=== PATIENT | female | born 1970 | race Asian ===

== ENCOUNTER 2016-10-25 10:37 | Emergency (ER) | payer OTHER ==
[2016-10-25] MEDS ORDERED: LIDOCAINE PATCH 5% TOP STA (12:34)
[2016-10-25] MEDS ORDERED: IBUPROFEN 400 MG TABLET PO STA (12:34)
[2016-10-25] MEDS ORDERED: CYCLOBENZAPRINE 10 MG TABLET PO STA (12:34)
[2016-10-25] MEDS ORDERED: CYCLOBENZAPRINE 10 MG TABLET PO ONE (12:37)
[2016-10-25] MEDS ORDERED: IBUPROFEN 400 MG TABLET PO ONE (12:38)
[2016-10-25] MEDS ORDERED: LIDOCAINE PATCH 5% TOP ONE (12:38)
== END 2016-10-25 14:01 | disposition home or self-care (01) ==
DX: S76.302A Unspecified injury of muscle, fascia and tendon of the posterior muscle group at thigh level, left thigh, initial encounter (principal); X50.1XXA Overexertion from prolonged static or awkward postures, initial encounter; Y93.89 Activity, other specified
CPT/HCPCS: 73552; 99283; A9270

== ENCOUNTER 2017-03-15 19:49 | Emergency (ER) | payer OTHER ==
[2017-03-15 21:01] VITALS: BP 111/73
[2017-03-15] MEDS ORDERED: DEXAMETHASONE 10 MG/ML VIAL PO STA (21:13)
--- NOTE | 2017-03-15 21:15 | ED Physician Documentation ---
History of Present Illness - Stated complaint Stated Complaint: THROAT PAIN - Chief complaint Chief Complaint: Heent - History obtained from History obtained from: Patient - History of Present Illness Timing: Today Pain level max: 1 Pain level now: 1 Improved by: nothing Worsened by: swallowing - Additonal information Additional information: Patient is a 46-year-old female who states that she was trying to remove a "tonsil stone" with a removal kit that she purchased off of [employer]. States that she feels like she scratched her throat and now has a sore feeling on the right side of her throat. Is not vomiting. Is not having trouble swallowing. Is not having fevers. Review of Systems Constitutional: denies: Fever, Chills Nose: denies: Rhinorrhea / runny nose, Congestion Respiratory: denies: Cough Skin: denies: Rash PD PAST MEDICAL HISTORY - Past Medical History Cardiovascular: None Respiratory: None Neuro: None Endocrine/Autoimmune: None GI: None CLINICAL RESEARCH NURSE: None : None HEENT: None Psych: None Musculoskeletal: None Derm: Eczema - Past Surgical History Past Surgical History: Yes /CLINICAL RESEARCH NURSE: section, Tubal ligation - Present Medications Home Medications: Ambulatory Orders Medication Instructions Recorded Confirmed Levothyroxine [Synthroid] 50 mcg PO DAILY 06/29/15 03/15/17 - Allergies Allergies/Adverse Reactions: Allergies Allergy/AdvReac Type Severity Reaction Status Date / Time bacitracin AdvReac Rash Verified 10/06/15 08:52 latex AdvReac Rash Verified 10/06/15 08:52 makeup AdvReac Rash Uncoded 10/06/15 08:52 - Social History Does the pt smoke?: No Smoking Status: Never smoker Does the pt drink ETOH?: No Does the pt have substance abuse?: No - Immunizations Immunizations are current?: Yes Immunizations: TDAP >10years/unknown - POLST Patient has POLST: No PD ED PE NORMAL - Vitals Vital signs reviewed: Yes - General General: Alert and oriented X 3, No acute distress - HEENT HEENT: PERRL, Ears normal, Moist mucous membranes, Pharynx benign - Neck Neck: Supple, no meningeal sign, No adenopathy - Cardiac Cardiac: RRR - Respiratory Respiratory: No respiratory distress, Clear bilaterally - Derm Derm: Warm and dry - Neuro Neuro: Alert and oriented X 3 - Psych Psych: Normal mood, Normal affect Results - Vitals Vitals: Vital Signs - 24 hr 03/15/17 03/15/17 19:52 20:59 Temperature 36.2 C L 37.6 C H Heart Rate 79 74 Respiratory 15 18 Rate Blood Pressure 121/74 111/73 O2 Saturation 100 100 Oxygen O2 Source Room air PD MEDICAL DECISION MAKING - ED course Complexity details: considered differential, d/w patient ED course: Patient appears to have a pharyngeal abrasion after trying to remove tonsil stones with the kit that she purchased online. Given a small dose of steroids here and expect this to improve over the next 2 days. No evidence of strep. Uvula midline. No bleeding. Patient counseled regarding signs and symptoms for which I believe and urgent re-evaluation would be necessary. Patient with good understanding of and agreement to plan and is comfortable going home at this time This document was made in part using voice recognition software. While efforts are made to proofread this document, sound alike and grammatical errors may occur. Departure - Departure Disposition: 01 Home, Self Care Clinical Impression: Abrasion of throat Qualifiers: Encounter type: initial encounter Qualified Code(s): S10.11XA - Abrasion of throat, initial encounter Condition: Good Instructions: ED Abrasion Pharyngeal Follow-Up: your,doctor in 1 week if not better [Other] Comments: Return if you worsen. This should improve over the next few days. Discharge Date/Time: 03/15/17 21:22
[2017-03-15] MEDS ORDERED: DEXAMETHASONE 10 MG/ML VIAL ONE (21:16)
[2017-03-15] MEDS ORDERED: CHERRY SYRUP 10 ML UDC PO ONE (21:16)
== END 2017-03-15 21:22 | disposition home or self-care (01) ==
LOC: ED 19:49
DX: S10.11XA Abrasion of throat, initial encounter (principal); X58.XXXA Exposure to other specified factors, initial encounter
CPT/HCPCS: 99283; A9270

== ENCOUNTER 2017-04-02 17:10 | Inpatient (IN) | payer OTHER ==
[~2017-04-02 17:10] MED LIST: MORPHINE 2 MG/ML SYRINGE IVP PRN; ONDANSETRON ODT 4 MG TABLET TL PRN; SODIUM CHLORIDE FLUSH 0.9% 10 ML SYRINGE IVP PRN
[2017-04-02 17:42] LABS: BILIRUBIN,URINE NEGATIVE (NEGATIVE); PH,URINE 6.5 PH (5.0-7.5)
[2017-04-02 17:45] LABS: UA CHARGE (STRIP ONLY) YES; UR CULTURE IF IND NOT INDICATED
[2017-04-02] MEDS ORDERED: HYDROmorphone 1 MG/ML SYRINGE IVP STA (18:18)
[2017-04-02] MEDS ORDERED: ONDANSETRON 4 MG/2 ML VIAL IVP STA (18:18)
[2017-04-02] MEDS ORDERED: SODIUM CHLORIDE 0.9% 1,000 ML IV ONE ×2 (18:18→21:18)
[2017-04-02] MEDS ORDERED: ONDANSETRON 4 MG/2 ML VIAL ONE (18:30)
[2017-04-02] MEDS ORDERED: HYDROmorphone 1 MG/ML SYRINGE ONE (18:30)
[2017-04-02 18:50] LABS: BILIRUBIN,TOTAL 0.6 mg/dL (0.2-1.0); CALCIUM 9.8 mg/dL (8.5-10.3); CREATININE 0.6 mg/dL (0.4-1.0); POTASSIUM 3.1 mmol/L (3.5-5.0); TOTAL PROTEIN 8.8 g/dL (6.7-8.2)
[2017-04-02 18:54] LABS: BASOPHILS # (AUTO) 0.1 10^3/uL (0.0-0.1); BASOPHILS % (AUTO) 2.3 %; EOSINOPHILS # (AUTO) 0.6 10^3/uL (0.0-0.7); EOSINOPHILS % (AUTO) 11.6 %; HCT - HEMATOCRIT 39.7 % (37.0-47.0); HGB - HEMOGLOBIN 13.2 g/dL (12.0-16.0); LYMPHOCYTES # (AUTO) 1.8 10^3/uL (1.5-3.5); LYMPHOCYTES % (AUTO) 36.4 %; MEAN CORPUSCULAR HEMOGLOBIN 30.1 pg (27.0-31.0); MEAN CORPUSCULAR HGB CONC 33.2 g/dL (32.0-36.0); MEAN CORPUSCULAR VOLUME 90.6 fL (81.0-99.0); MEAN PLATELET VOLUME 7.6 fL (7.9-10.8); MONOCYTES # (AUTO) 0.3 10^3/uL (0.0-1.0); MONOCYTES % (AUTO) 7.2 %; NEUTROPHILS % (AUTO) 42.5 %; RED BLOOD COUNT 4.38 10^6/uL (4.20-5.40); RED CELL DISTRIBUTION WIDTH 13.1 % (12.0-15.0); UNCORRECTED WHITE BLOOD COUNT 4.8 x10^3/uL; WHITE BLOOD COUNT 4.8 x10^3/uL (4.8-10.8)
[2017-04-02] MEDS ORDERED: IOPAMIDOL-300 100 ML VIAL IVP ONE (19:30)
--- NOTE | 2017-04-02 21:05 | ED Physician Documentation ---
PD HPI ABD PAIN - Stated complaint Stated Complaint: ABD PX - Chief complaint Chief Complaint: Abd Pain - History obtained from History obtained from: Patient - History of Present Illness Timing - onset: Today (this morning) Timing - duration: Days (1) Timing - details: Still present Quality: Pain Location: LLQ Associated symptoms: Nausea. No: Fever, Vomiting, Dysuria Similar symptoms before: Has not had sx before - Additional information Additional information: The patient is a 46-year-old female who presents with left lower quadrant abdominal pain that started this morning and has persisted throughout the day. She denies fever or dysuria. She reports mild nausea, without vomiting. Her last menstrual period was one week ago. She denies history of similar symptoms in the past. Past surgical history is significant for . Review of Systems Constitutional: denies: Fever Nose: denies: Congestion Throat: denies: Sore throat Cardiac: denies: Chest pain / pressure Respiratory: denies: Dyspnea, Cough GI: reports: Abdominal Pain, Nausea. denies: Vomiting, Diarrhea : reports: LMP (one week ago.). denies: Dysuria Skin: denies: Rash Musculoskeletal: denies: Back pain Neurologic: denies: Headache PD PAST MEDICAL HISTORY - Past Medical History Cardiovascular: None Respiratory: None Neuro: None Endocrine/Autoimmune: None GI: None QUICK SKETCH ARTIST: None : None HEENT: None Psych: None Musculoskeletal: None Derm: Eczema - Past Surgical History Past Surgical History: Yes /QUICK SKETCH ARTIST: section, Tubal ligation - Present Medications Home Medications: Ambulatory Orders Medication Instructions Recorded Confirmed Levothyroxine Sodium [Synthroid] 50 mcg PO QDAC 04/03/17 - Allergies Allergies/Adverse Reactions: Allergies Allergy/AdvReac Type Severity Reaction Status Date / Time bacitracin AdvReac Rash Verified 10/06/15 08:52 latex AdvReac Rash Verified 10/06/15 08:52 makeup AdvReac Rash Uncoded 10/06/15 08:52 - Social History Does the pt smoke?: No Smoking Status: Never smoker Does the pt drink ETOH?: No Does the pt have substance abuse?: No - Immunizations Immunizations are current?: Yes Immunizations: TDAP >10years/unknown - POLST Patient has POLST: No PD ED PE NORMAL - Vitals Vital signs reviewed: Yes (borderline hypertension) - General General: Alert and oriented X 3, Well developed/nourished - HEENT HEENT: Atraumatic, Pharynx benign - Neck Neck: No adenopathy, No JVD - Cardiac Cardiac: RRR, No murmur - Respiratory Respiratory: No respiratory distress, Clear bilaterally - Abdomen Abdomen: Soft, No organomegaly, Other (Tenderness to palpation in the left lower quadrant, without rebound or guarding.) - Back Back: No CVA TTP - Derm Derm: No rash - Extremities Extremities: No edema, No calf tenderness / cord - Neuro Neuro: Alert and oriented X 3, No motor deficit, Normal speech Results - Vitals Vitals: Vital Signs - 24 hr 04/02/17 04/02/17 04/02/17 17:12 19:30 21:18 Temperature 36.8 C 36.7 C 36.1 C L Heart Rate 80 72 93 Respiratory 18 14 15 Rate Blood Pressure 138/96 H 106/50 L 104/62 O2 Saturation 100 100 100 Oxygen O2 Source Room air - Labs Labs: Laboratory Tests 04/02/17 04/02/17 04/02/17 17:29 18:29 18:29 WBC 4.8 RBC 4.38 Hgb 13.2 Hct 39.7 MCV 90.6 MCH 30.1 MCHC 33.2 RDW 13.1 Plt Count 236 MPV 7.6 L Neut # 2.0 Lymph # 1.8 Gove # 0.3 Eos # 0.6 Baso # 0.1 Absolute Nucleated RBC 0.00 Nucleated RBCs 0.0 Sodium 137 Potassium 3.1 L Chloride 102 Carbon Dioxide 26 Anion Gap 9.0 BUN 8 Creatinine 0.6 Estimated GFR (MDRD) 108 Glucose 93 Calcium 9.8 Total Bilirubin 0.6 AST 22 ALT 23 Alkaline Phosphatase 47 Total Protein 8.8 H Albumin 4.5 Globulin 4.3 H Albumin/Globulin Ratio 1.0 Lipase 21 L Urine Color STRAW Urine Clarity CLEAR Urine pH 6.5 Ur Specific [place] <=1.005 Urine Protein NEGATIVE Urine Glucose (UA) NEGATIVE Urine Ketones NEGATIVE Urine Occult Blood TRACE-INTA Urine Nitrite NEGATIVE Urine Bilirubin NEGATIVE Urine Urobilinogen 0.2 (NORMAL) Ur Leukocyte Esterase NEGATIVE Ur Microscopic Review NOT INDICATED Urine Culture Comments NOT INDICATED - Rads (name of study) CT abd/pelvis w/IV contrast Radiology: Prelim report reviewed, EMP read contemporaneously, See rad report ( Mid small bowel obstruction, with at least 3 points of narrowing noted in the mid small bowel. Small amount of free fluid in the pelvis.) PD MEDICAL DECISION MAKING - ED course Complexity details: reviewed results, re-evaluated patient, considered differential, d/w patient, d/w family, d/w configuration management consultant ED course: The patient's presentation is significant for small bowel obstruction as seen on CT scan of the abdomen and pelvis. Her laboratory results are significant for mild hypokalemia with potassium of 3.1. Her white count is normal at 4.8. Treatment in the emergency department included administration of normal saline 1 L IV, hydromorphone 1 mg IV, and Zofran 4 mg IV. In addition potassium 10 mEq was administered IV. I discussed her condition with Dr. Diaz who evaluated her in the emergency department and admitted her for further evaluation and treatment. Departure - Departure Disposition: [facility] DC/Xfer Clinical Impression: Small bowel obstruction, Hypokalemia Condition: Stable Discharge Date/Time: 04/02/17 23:57
[2017-04-02] MEDS ORDERED: POTASSIUM CHLOR 10 MEQ/100 ML 100 ML IV ONE ×2 (21:52→21:58)
--- NOTE | 2017-04-02 22:06 | HISTORY & PHYSICAL EXAMINATION ---
Chief Complaint - Chief Complaint Chief Complaint: Abdominal pain Abdominal Pain HPI - Instructions [place]/Slash: -Left hand click circles element as positive or present. -Right hand click slashes element as negative or not present. - Admitted From Admitted from: ED - History Obtained From Records Reviewed: Old records reviewed History obtained from: Patient Exam limitations: No limitations - History of Present Illness Severity at the worst: reports: Moderate Pain Quality: reports: Sharp Timing: reports: Abrupt onset Duration: reports: Days: (1) Improved with: reports: Other (IV medications) Worsened by: reports: Palpation Associated symptoms: reports: Nausea HPI Comment/Other: 46 yo female with hypothyroid c/o of 1 day hx of suprapubic pain, /10, non- radiating, sharp constant which didn't improve so she came to the ED. She denies any vomiting or fevers and had episode of nausea after she was given pain medications in ED. Last BM this am. First time episode. Past surgical hx of 3 C-sections. LMP 03/27/17 PMH/PSH - Past Medical History Cardiovascular: positive: None Respiratory: positive: None Neuro: positive: None Endocrine/Autoimmune: positive: HyPOthyroidism GI: positive: None FLOOR CARE TECHNICIAN: positive: None : positive: None HEENT: positive: None Psych: positive: None Musculoskeletal: positive: None Derm: positive: Eczema MRSA Hx?: No - Past Surgical History /FLOOR CARE TECHNICIAN: positive: section (x3), Tubal ligation Social & Family Hx - Social History Does the pt smoke?: No Smoking Status: Never smoker Does the pt drink ETOH?: No Does the pt have substance abuse?: No - POLST Patient has POLST: No Meds/Allgy - Home Medications Home Medications: Ambulatory Orders Medication Instructions Recorded Confirmed Levothyroxine [Synthroid] 50 mcg PO DAILY 06/29/15 03/15/17 - Allergies Allergies/Adverse Reactions: Allergies Allergy/AdvReac Type Severity Reaction Status Date / Time bacitracin AdvReac Rash Verified 10/06/15 08:52 latex AdvReac Rash Verified 10/06/15 08:52 makeup AdvReac Rash Uncoded 10/06/15 08:52 Review of Systems - Constitutional Constitutional: reports: Fatigue. denies: Chills - Eyes Eyes: denies: Pain, Blurred vision - Ears, Nose & Throat Ears, Nose & Throat: denies: Nasal pain - Cardiovascular Cariovascular: denies: Irregular heart rate, Palpitations, Chest pain - Respiratory Respiratory: denies: Cough, Wheezing - Gastrointestinal Gastrointestinal: reports: Abdominal pain, Nausea. denies: Abdominal distention , Constipation, Diarrhea, Rectal bleeding, Black stools, Bloody stools, Vomiting , Bile emesis - Genitourinary Genitourinary: denies: Dysuria, Urgency - Musculoskeletal Musculoskeletal: denies: Muscle pain - Integumentary Integumentary: denies: Rash - Neurological Neurological: denies: General weakness - Psychiatric Psychiatric: denies: Depression - Endocrine Endocrine: denies: Polyuria - Hematologic/Lymphatic Hematologic/Lymphatic: denies: Anemia Exam - Vital Signs Reviewed Vital Signs: Yes Vital Signs: Vital Signs x48h Temp Pulse Resp BP Pulse Ox 04/02/17 21:18 36.1 C L 93 15 104/62 100 04/02/17 19:30 36.7 C 72 14 106/50 L 100 04/02/17 17:12 36.8 C 80 18 138/96 H 100 - Physical Exam General Appearance: positive: No acute distress Eyes Bilateral: positive: Normal inspection ENT: positive: No signs of dehydration Neck: positive: No JVD, Trachea midline Respiratory: positive: Breath sounds nml Cardiovascular: positive: Regular rate & rhythm Peripheral Pulses: positive: 2+ Abdomen: positive: Nml bowel sounds (+bs, soft,ND, mild TTP suprapubic area, No rebound or guarding) Rectal: positive: Non-tender (Vaginal exam non tender no discharge). negative: Tenderness, Mass Neurologic/Psychiatric: positive: Oriented x3, CN's nml (2-12) Results - Lab Results Fish Bones: 04/02/17 18:29 04/02/17 18:29 Other Lab Results: Lab Results x24hrs 04/02/17 04/02/17 04/02/17 Range/Units 18:29 18:29 17:29 WBC 4.8 (4.8-10.8) x10^3/uL RBC 4.38 (4.20-5.40) 10^6/uL Hgb 13.2 (12.0-16.0) g/dL Hct 39.7 (37.0-47.0) % MCV 90.6 (81.0-99.0) fL MCH 30.1 (27.0-31.0) pg MCHC 33.2 (32.0-36.0) g/dL RDW 13.1 (12.0-15.0) % Plt Count 236 (130-450) 10^3/uL MPV 7.6 L (7.9-10.8) fL Neut # 2.0 (1.5-6.6) 10^3/uL Lymph # 1.8 (1.5-3.5) 10^3/uL Rich # 0.3 (0.0-1.0) 10^3/uL Eos # 0.6 (0.0-0.7) 10^3/uL Baso # 0.1 (0.0-0.1) 10^3/uL Absolute Nucleated RBC 0.00 x10^3/uL Nucleated RBCs 0.0 /100WBC Sodium 137 (135-145) mmol/L Potassium 3.1 L (3.5-5.0) mmol/L Chloride 102 (101-111) mmol/L Carbon Dioxide 26 (21-32) mmol/L Anion Gap 9.0 (6-13) BUN 8 (6-20) mg/dL Creatinine 0.6 (0.4-1.0) mg/dL Estimated GFR (MDRD) 108 (>89) Glucose 93 (70-100) mg/dL Calcium 9.8 (8.5-10.3) mg/dL Total Bilirubin 0.6 (0.2-1.0) mg/dL AST 22 (10-42) IU/L ALT 23 (10-60) IU/L Alkaline Phosphatase 47 (42-121) IU/L Total Protein 8.8 H (6.7-8.2) g/dL Albumin 4.5 (3.2-5.5) g/dL Globulin 4.3 H (2.1-4.2) g/dL Albumin/Globulin Ratio 1.0 (1.0-2.2) Lipase 21 L (22-51) U/L Urine Color STRAW Urine Clarity CLEAR (CLEAR) Urine pH 6.5 (5.0-7.5) PH Ur Specific [place] <=1.005 (1.002-1.030) Urine Protein NEGATIVE (NEGATIVE) mg/dL Urine Glucose (UA) NEGATIVE (NEGATIVE) mg/dL Urine Ketones NEGATIVE (NEGATIVE) mg/dL Urine Occult Blood TRACE-INTA (NEGATIVE) Urine Nitrite NEGATIVE (NEGATIVE) Urine Bilirubin NEGATIVE (NEGATIVE) Urine Urobilinogen 0.2 (NORMAL) (NORMAL) E.U./dL Ur Leukocyte Esterase NEGATIVE (NEGATIVE) Ur Microscopic Review NOT INDICATED Urine Culture Comments NOT INDICATED - Diagnostic Imaging Results Diagnostic Imaging Results: positive: Read contemporaneously (Mid small bowel obstruction with at least 3 points of narrowing noted in the mid small bowel. Small amount of free fluid in the pelvis.) ARRA - Anticipated LOS Anticipated Stay Length: 2 or more midnights - DVT/VTE - Prophylaxis VTE/DVT Device ordered at admit?: Yes VTE/DVT Prophylaxis med ordered at admit?: Yes Impression/Plan - Problem List Problem List: 46 yo female with hypothyroidism now with Small bowel obstruction Likely adhesive. 1. NPO 2. NGT to LWS 3 IVF 4. IV synthroid 5. HSQ 6. GI prophylaxis 7 Am KUB 8. AM labs 9. Possible SBFT
[2017-04-02] MEDS ORDERED: SODIUM CHLORIDE FLUSH 0.9% 10 ML SYRINGE IVP PRN (22:25)
[2017-04-02] MEDS ORDERED: MORPHINE 2 MG/ML SYRINGE IVP PRN (22:25)
[2017-04-02] MEDS ORDERED: ONDANSETRON ODT 4 MG TABLET TL PRN (22:25)
[2017-04-02] MEDS ORDERED: BENZOCAINE/MENTHOL LOZENGE MM STA (22:37)
[2017-04-02] MEDS ORDERED: BENZOCAINE/MENTHOL LOZENGE MM SCH (22:37)
[2017-04-02] MEDS: LACTATED RINGERS 1,000 ML IV SCH (22:41)
[2017-04-02] MEDS ORDERED: LIDOCAINE 2% URO-JET 5 ML SYRINGE UR ONE (22:48)
--- NOTE | 2017-04-02 22:57 | CT Report ---
EXAM: CT ABDOMEN AND PELVIS EXAM DATE: 04/02/2017 07:09 PM. CLINICAL HISTORY: Left lower quadrant pain. COMPARISONS: None. TECHNIQUE: Routine helical CT imaging was performed through the abdomen and pelvis. IV contrast: 100 cc of Isovue-300. Enteric contrast: No. Reconstructions: Coronal and sagittal. In accordance with CT protocol optimization, one or more of the following dose reduction techniques w ere utilized for this exam: automated exposure control, adjustment of mA and/or KV based on patient s ize, or use of iterative reconstructive technique. FINDINGS: Lung Bases: Unremarkable. Liver: Normal. No masses. Gallbladder/Bile Ducts: Unremarkable. Spleen: Normal. Pancreas: Normal. Adrenal Glands: Normal. Kidneys: Normal. No masses or hydronephrosis. Peritoneal Cavity/Bowel: Proximal small bowel dilatation with at least 3 points of narrowing, best se en on image 35 series 3, image 23 series 6, and image 39 series 3. Decompressed ileum. No free air or adenopathy. No masses or acute inflammatory process. The appendix is well visualized and normal. Pelvic Organs: Small amount of free fluid. Reproductive organs and bladder are unremarkable. Vasculature: No aneurysms or other significant abnormality. Bones: No significant abnormality. Other: None. IMPRESSION: Mid small bowel obstruction, with at least 3 points of narrowing noted in the mid small b owel. Small amount of free fluid in the pelvis. [facility] Referring Provider Line: [phone] SITE ID: [id number]
--- NOTE | 2017-04-02 22:57 | CT Preliminary Report ---
Exam: CT Abdomen/Pelvis W/ IMPRESSION: Mid small bowel obstruction, with at least 3 points of narrowing noted in the mid small b owel. Small amount of free fluid in the pelvis. [facility] SITE ID: [id number]
[2017-04-02] MEDS ORDERED: HEPARIN 5,000 UNIT/ML VIAL SUBQ SCH (23:00)
[2017-04-03] MEDS ORDERED: SODIUM CHLORIDE FLUSH 0.9% 10 ML SYRINGE IVP SCH (06:00)
[2017-04-03] MEDS: SODIUM CHLORIDE FLUSH 0.9% 10 ML SYRINGE IVP SCH ×3 (06:33→20:44)
[2017-04-03] MEDS: LACTATED RINGERS 1,000 ML IV SCH ×2 (06:33→20:44)
[2017-04-03] MEDS: LEVOTHYROXINE 100 MCG VIAL IVP SCH (06:34)
[2017-04-03] MEDS ORDERED: LEVOTHYROXINE 100 MCG VIAL IVP SCH (07:00)
[2017-04-03] MEDS ORDERED: FAMOTIDINE 20 MG/50 ML 50 ML IV SCH (09:00)
[2017-04-03] MEDS: FAMOTIDINE 20 MG/50 ML 50 ML IV SCH (09:55)
[2017-04-03] MEDS: HEPARIN 5,000 UNIT/ML VIAL SUBQ SCH ×2 (10:06→20:41)
[2017-04-03 10:37] LABS: CALCIUM 8.5 mg/dL (8.5-10.3); CREATININE 0.6 mg/dL (0.4-1.0); POTASSIUM 3.4 mmol/L (3.5-5.0)
--- NOTE | 2017-04-03 11:00 | XRAY Preliminary Report ---
Exam: XR Abdomen 1 View IMPRESSION: 1. Moderate stool in right hemicolon. 2. No dilated bowel to suggest obstruction. 3. Probable terminal ileal inflammation on abdominal CT prior day. Recommend clinical correlation and consider follow-up gastroenterology consult to exclude Crohn's disease. [facility] SITE ID: [id number]
--- NOTE | 2017-04-03 11:02 | XRAY Report ---
EXAM: ABDOMEN RADIOGRAPHY EXAM DATE: 04/03/2017 10:21 AM. CLINICAL HISTORY: Abdominal pain. COMPARISON: Abdominal pelvic CT prior day. TECHNIQUE: 1 view. FINDINGS: Bowel Gas Pattern: Moderate stool in right hemicolon. No pneumatosis evident. No dilated bowel. Other: None. IMPRESSION: 1. Moderate stool in right hemicolon. 2. No dilated bowel to suggest obstruction. 3. Probable terminal ileal inflammation on abdominal CT prior day. Recommend clinical correlation and consider follow-up gastroenterology consult to exclude Crohn's disease. [facility] Referring Provider Line: [phone] SITE ID: [id number]
--- NOTE | 2017-04-03 11:09 | PROVIDER PROGRESS NOTE ---
Subjective - General Admit Date: 04/02/17 Procedure Date: 04/03/17 Post Op Days: 0 - Review of Systems General: positive: No symptoms HEENT: positive: No symptoms Pulmonary: positive: No symptoms Cardiovascular: positive: No symptoms Gastrointestinal: positive: No symptoms Genitourinary: positive: No symptoms Musculoskeletal: positive: No symptoms Skin: positive: No symptoms Psychiatric: positive: No symptoms - Other Other Information/Narrative: Patient seen at bedside. No issues. States she feels better. Ambulating. urinating well. Passing gas. Patient has been refusing an NG tube as well as not compliant with wearing of the SCD's. Objective - Patient Data Reviewed Vital Signs: Yes Vital Signs: Vital Signs x48h Temp Pulse Resp BP Pulse Ox 04/03/17 09:02 64 97/54 L 04/03/17 08:36 37.1 C 67 16 93/54 L 100 04/03/17 06:21 36.9 C 114 H 16 103/58 L 96 Intake & Output: Intake and Output Totals x24h 04/01/17 04/02/17 04/03/17 23:59 23:59 23:59 Intake Total 950 Output Total 1400 Balance -450 - Lab Results Lab Results: 04/02/17 18:29 04/03/17 10:05 Other Lab Results: Lab Results x24hrs 04/03/17 04/02/17 Range/Units 10:05 22:27 Sodium 139 (135-145) mmol/L Potassium 3.4 L (3.5-5.0) mmol/L Chloride 107 (101-111) mmol/L Carbon Dioxide 26 (21-32) mmol/L Anion Gap 6.0 (6-13) BUN 5 L (6-20) mg/dL Creatinine 0.6 (0.4-1.0) mg/dL Estimated GFR (MDRD) 108 (>89) Glucose 90 (70-100) mg/dL Lactic Acid 1.6 (0.5-2.2) mmol/L Calcium 8.5 (8.5-10.3) mg/dL - Current Medications Current Medications: Current Medications Generic Name Dose Route Start Last Admin Trade Name Freq PRN Reason Stop Dose Admin Heparin Sodium (Porcine) 5,000 unit 04/02/17 23:00 04/03/17 10:06 SUBQ 5,000 unit BID LARRY Administration Lactated Ringer's 1,000 mls @ 150 mls/hr 04/02/17 22:00 04/03/17 06:33 Lr IV 150 mls/hr .[id number] LARRY Administration Famotidine 50 mls @ 100 mls/hr 04/03/17 09:00 04/03/17 09:55 Pepcid 20 Mg/50 Ml IV 100 mls/hr DAILY LARRY Administration Levothyroxine Sodium 25 mcg 04/03/17 07:00 04/03/17 06:34 Synthroid Inj IVP Not Given QDAC LARRY Sodium Chloride 10 ml 04/03/17 06:00 04/03/17 06:33 Normal Saline Flush 0.9% IVP Not Given Q8HR LARRY - Physical Exam General Appearance: positive: No acute distress Eyes Bilateral: positive: Normal inspection ENT: positive: No signs of dehydration Neck: positive: No JVD Respiratory: positive: Breath sounds nml Cardiovascular: positive: Regular rate & rhythm Abdomen: positive: Non-tender, No organomegaly, Nml bowel sounds, No distention. negative: Guarding, Rebound Skin: positive: Warm, Dry Extremities: positive: Non-tender, Full ROM Neurologic/Psychiatric: positive: Oriented x3, CN's nml (2-12) Impression/Plan - Problem List Problem List: 46 yo female with small bowel obstruction complete vs partial improving. Will try clears. KUB looks like moderate stool in colon. Will give stool softeners. Continue serial exams.
[2017-04-03] MEDS ORDERED: BISACODYL 10 MG SUPP PR ONE (11:30)
[2017-04-03] MEDS: POLYETHYLENE GLYCOL 3350 17 GM PACKET PO SCH (12:07)
[2017-04-03] MEDS ORDERED: MAGNESIUM HYDROXIDE 2,400 MG/30 ML UDC PO PRN (16:24)
[2017-04-03 17:35] LABS: EOSINOPHILS # (AUTO) 0.2 10^3/uL (0.0-0.7); EOSINOPHILS % (AUTO) 5.3 %; HCT - HEMATOCRIT 35.4 % (37.0-47.0); HGB - HEMOGLOBIN 11.9 g/dL (12.0-16.0); LYMPHOCYTES # (AUTO) 1.6 10^3/uL (1.5-3.5); MEAN CORPUSCULAR HEMOGLOBIN 30.5 pg (27.0-31.0); MEAN CORPUSCULAR HGB CONC 33.5 g/dL (32.0-36.0); MEAN CORPUSCULAR VOLUME 91.3 fL (81.0-99.0); MEAN PLATELET VOLUME 7.6 fL (7.9-10.8); MONOCYTES # (AUTO) 0.4 10^3/uL (0.0-1.0); MONOCYTES % (AUTO) 8.7 %; NEUTROPHILS # (AUTO) 1.9 10^3/uL (1.5-6.6); RED BLOOD COUNT 3.88 10^6/uL (4.20-5.40); RED CELL DISTRIBUTION WIDTH 13.4 % (12.0-15.0); UNCORRECTED WHITE BLOOD COUNT 4.2 x10^3/uL; WHITE BLOOD COUNT 4.2 x10^3/uL (4.8-10.8)
[2017-04-03] MEDS ORDERED: POTASSIUM CHLORIDE 20 MEQ TABLET PO SCH (19:00)
[2017-04-03] MEDS: MAGNESIUM OXIDE 400 MG TABLET PO SCH (20:41)
[2017-04-03] MEDS ORDERED: LACTATED RINGERS 1,000 ML IV SCH (21:32)
[2017-04-04] MEDS: LEVOTHYROXINE 100 MCG VIAL IVP SCH (06:09)
[2017-04-04] MEDS: SODIUM CHLORIDE FLUSH 0.9% 10 ML SYRINGE IVP SCH (06:10)
[2017-04-04] MEDS: POLYETHYLENE GLYCOL 3350 17 GM PACKET PO SCH (08:41)
[2017-04-04] MEDS: MAGNESIUM OXIDE 400 MG TABLET PO SCH (08:41)
[2017-04-04] MEDS: HEPARIN 5,000 UNIT/ML VIAL SUBQ SCH (08:41)
[2017-04-04] MEDS: FAMOTIDINE 20 MG/50 ML 50 ML IV SCH (08:41)
--- NOTE | 2017-04-04 08:59 | PROVIDER PROGRESS NOTE ---
Assessment/Plan - Problem List (1) Small bowel obstruction Assessment/Plan: 46 yo female with partial small bowel obstruction resolved. Stable for D/C. Will discharge on stool softeners and instructed to stay hydrated. - Current Meds Current Meds: Current Medications Generic Name Dose Route Start Last Admin Trade Name Freq PRN Reason Stop Dose Admin Heparin Sodium (Porcine) 5,000 unit 04/02/17 23:00 04/04/17 08:41 SUBQ Not Given BID LARRY Famotidine 50 mls @ 100 mls/hr 04/03/17 09:00 04/04/17 08:41 Pepcid 20 Mg/50 Ml IV 100 mls/hr DAILY LARRY Administration Lactated Ringer's 1,000 mls @ 30 mls/hr 04/03/17 21:32 04/04/17 00:14 Lr IV Not Given .[id number] LARRY TKO Levothyroxine Sodium 25 mcg 04/03/17 07:00 04/04/17 06:09 Synthroid Inj IVP 25 mcg QDAC LARRY Administration Magnesium Hydroxide 2,400 mg 04/03/17 16:24 04/03/17 17:03 Milk Of Magnesia PO 2,400 mg DAILY PRN Administration CONSTIPATION Magnesium Oxide 400 mg 04/03/17 21:00 04/04/17 08:41 Mag Ox PO 04/04/17 20:59 400 mg BID LARRY Administration Polyethylene Glycol 17 gm 04/03/17 11:00 04/04/17 08:41 Miralax PO 17 gm DAILY LARRY Administration Sodium Chloride 10 ml 04/03/17 06:00 04/04/17 06:10 Normal Saline Flush 0.9% IVP 10 ml Q8HR LARRY Administration - Lab Result Lab results reviewed: Yes Fish Bone Diagrams: 04/03/17 17:00 04/03/17 10:05 - Additional Planning My Orders: My Active Orders 04/03/17 09:00 Famotidine 20 mg/50 ml [Pepcid 20 mg/50 ml] 50 ml IV DAILY 04/03/17 11:00 Polyethylene Glycol 3350 [Miralax] 17 gm PO DAILY 04/03/17 16:24 Magnesium Hydroxide [Milk of Magnesia] 2,400 mg PO DAILY PRN 04/03/17 21:00 Magnesium Oxide [Mag Ox] 400 mg PO BID 04/03/17 21:32 Lactated Ringers [Lr] 1,000 ml IV TKO 04/04/17 Breakfast Regular Diet [DIET] Subjective - Subjective Patient Reports: Feeling Better (Patient seen bedside, no complaints, ambulating having BM, tolerating regular diet.) Nursing Reports: No Complaints Objective Vital Signs: Vital Signs - 24 hr 04/03/17 04/03/17 04/03/17 09:02 15:13 16:10 Temperature 36.9 C 36.8 C Heart Rate [ 64 64 63 Brachial] Respiratory 16 20 Rate Blood Pressure 97/54 L 107/58 L 107/56 L [Right Brachial artery] O2 Saturation 100 100 04/04/17 05:26 Temperature 36.7 C Heart Rate [ 70 Brachial] Respiratory 16 Rate Blood Pressure 99/55 L [Right Brachial artery] O2 Saturation 100 Oxygen O2 Source Room air I&O (Last 24 Hrs): Intake and Output Totals x24h 04/02/17 04/03/17 04/04/17 23:59 23:59 23:59 Intake Total 2678 450 Output Total 1400 Balance 1278 450 General: Alert, Oriented x3 HEENT: PERRLA Neck: No JVD Cardiovascular: Regular rate Respiratory: Breath sounds nml Abdomen: Normal bowel sounds, Soft, No tenderness, No hepatospenomegaly - Results Results: Laboratory Results WBC 4.2 x10^3/uL (4.8-10.8) L 04/03/17 17:00 RBC 3.88 10^6/uL (4.20-5.40) L 04/03/17 17:00 Hgb 11.9 g/dL (12.0-16.0) L 04/03/17 17:00 Hct 35.4 % (37.0-47.0) L 04/03/17 17:00 MCV 91.3 fL (81.0-99.0) 04/03/17 17:00 MCH 30.5 pg (27.0-31.0) 04/03/17 17:00 MCHC 33.5 g/dL (32.0-36.0) 04/03/17 17:00 RDW 13.4 % (12.0-15.0) 04/03/17 17:00 Plt Count 193 10^3/uL (130-450) 04/03/17 17:00 MPV 7.6 fL (7.9-10.8) L 04/03/17 17:00 Neut # 1.9 10^3/uL (1.5-6.6) 04/03/17 17:00 Lymph # 1.6 10^3/uL (1.5-3.5) 04/03/17 17:00 [place] # 0.4 10^3/uL (0.0-1.0) 04/03/17 17:00 Eos # 0.2 10^3/uL (0.0-0.7) 04/03/17 17:00 Baso # 0.0 10^3/uL (0.0-0.1) 04/03/17 17:00 Absolute Nucleated RBC 0.00 x10^3/uL 04/03/17 17:00 Nucleated RBCs 0.0 /100WBC 04/03/17 17:00 Sodium 139 mmol/L (135-145) 04/03/17 10:05 Potassium 3.4 mmol/L (3.5-5.0) L 04/03/17 10:05 Chloride 107 mmol/L (101-111) 04/03/17 10:05 Carbon Dioxide 26 mmol/L (21-32) 04/03/17 10:05 Anion Gap 6.0 (6-13) 04/03/17 10:05 BUN 5 mg/dL (6-20) L 04/03/17 10:05 Creatinine 0.6 mg/dL (0.4-1.0) 04/03/17 10:05 Estimated GFR (MDRD) 108 (>89) 04/03/17 10:05 Glucose 90 mg/dL (70-100) 04/03/17 10:05 Lactic Acid 1.6 mmol/L (0.5-2.2) 04/02/17 22:27 Calcium 8.5 mg/dL (8.5-10.3) 04/03/17 10:05 Total Bilirubin 0.6 mg/dL (0.2-1.0) 04/02/17 18:29 AST 22 IU/L (10-42) 04/02/17 18:29 ALT 23 IU/L (10-60) 04/02/17 18:29 Alkaline Phosphatase 47 IU/L (42-121) 06/16/17 18:29 C-React Prot High Sens < 0.5 mg/L 04/03/17 17:00 Total Protein 8.8 g/dL (6.7-8.2) H 04/02/17 18:29 Albumin 4.5 g/dL (3.2-5.5) 04/02/17 18:29 Globulin 4.3 g/dL (2.1-4.2) H 04/02/17 18:29 Albumin/Globulin Ratio 1.0 (1.0-2.2) 04/02/17 18:29 Lipase 21 U/L (22-51) L 04/02/17 18:29 Serum HCG, Qual NEGATIVE 04/03/17 10:05 Urine Color STRAW 04/02/17 17:29 Urine Clarity CLEAR (CLEAR) 04/02/17 17:29 Urine pH 6.5 PH (5.0-7.5) 04/02/17 17:29 Ur Specific [place] <=1.005 (1.002-1.030) 04/02/17 17:29 Urine Protein NEGATIVE mg/dL (NEGATIVE) 04/02/17 17:29 Urine Glucose (UA) NEGATIVE mg/dL (NEGATIVE) 04/02/17 17:29 Urine Ketones NEGATIVE mg/dL (NEGATIVE) 04/02/17 17:29 Urine Occult Blood TRACE-INTA (NEGATIVE) 04/02/17 17:29 Urine Nitrite NEGATIVE (NEGATIVE) 04/02/17 17:29 Urine Bilirubin NEGATIVE (NEGATIVE) 04/02/17 17:29 Urine Urobilinogen 0.2 (NORMAL) E.U./dL (NORMAL) 04/02/17 17:29 Ur Leukocyte Esterase NEGATIVE (NEGATIVE) 04/02/17 17:29 Ur Microscopic Review NOT INDICATED 04/02/17 17:29 Urine Culture Comments NOT INDICATED 04/02/17 17:29
--- NOTE | 2017-04-04 09:02 | Discharge Plan ---
Discharge Plan Disposition: Home, Self Care Condition: Stable Prescriptions: Docusate Sodium 250Mg Capsule [Colace 250Mg Capsule] 250 mg PO DAILY PRN #100 capsule PRN Reason: Constipation Psyllium Husk [Metamucil] 0.52 gm PO BID PRN #90 capsule PRN Reason: Constipation Multivitamin W/Minerals [Theragran M] 1 each PO DAILY #90 tablet Diet: Regular Activity Restrictions: No Restrictions Shower Restrictions: No Driving Restrictions: No Weight Bearing: Full Weight Additional Instructions or Follow Up instructions: Stay hydrated. Take multivitamin once daily. Take stool softeners when constipated. Eat more fiber. Follow up with your Primary Care Doctor for a GI referral for colonoscopy and possible Crohn's workup. Call the office for an appointment [phone] No Smoking: If you smoke, Please STOP! Call for help. Follow-up with: Toro Diaz DO [Provider Admit Priv/Credential] - 2 Weeks
[2017-04-04 10:25] VITALS: BP 109/54
--- NOTE | 2017-04-05 06:04 | DISCHARGE SUMMARY ---
DATE OF ADMISSION: 04/02/2017 DATE OF DISCHARGE: 04/04/2017 ATTENDING PHYSICIAN: Toro Diaz DO CONDITION ON DISCHARGE: Stable and improved. FINAL DIAGNOSIS: Partial small-bowel obstruction. HISTORY OF PRESENT ILLNESS: This is a pleasant 46-year-old female with a history of hypothyroidism who complained of a 1-day history of suprapubic 8/10, nonradiating, sharp, constant pain, which did not improve so she came to the emergency room. She denied any vomiting or fevers at that time and had some nausea after she was given pain medications in the emergency room. Her last bowel movement was 04/02/2017, this was a first-time episode. She has a past surgical history of 3 C-sections. Her last menstrual period was 03/27/2017. A CT scan was performed on 04/02/2017, which confirmed the proximal small bowel dilation with at least 3 points of narrowing and a decompressed ileum without any free air or adenopathy. No masses or acute inflammatory process, and a normal appendix, which looked like to be consistent with a mid small-bowel obstruction. An abdominal x-ray was performed on 04/03/2017, which showed moderate stool in the right hemicolon. There was no dilated bowel to suggest an obstruction. Probable terminal ileal inflammation noted on the CT and they were recommending clinical correlation to exclude Crohn disease. LABORATORY DATA: Potassium was 3.1, lactic acid was 1.6, C-reactive protein was less than 0.5. WBCs were 4.2, hemoglobin and hematocrit were 11.9/35.4. UA was negative. Serum hCG was negative. HOSPITAL COURSE: She was admitted to the hospital where IV fluid resuscitation was begun. She was given pain control with morphine and DVT prophylaxis with heparin subcutaneous, as well as GI prophylaxis with famotidine. She had return of bowel function late on 04/03/2017 and she continued to ambulate, she tolerated diet and she was subsequently discharged. DISCHARGE MEDICATIONS: The patient was instructed to continue her home medications. She was discharged on Colace, Metamucil, multivitamin. DISCHARGE INSTRUCTIONS: She was instructed to continue on a regular diet with no activity or shower, driving restrictions, full weightbearing. She was instructed to stay hydrated, take the multivitamin once daily, take stool softeners when constipated, eat more fiber, and follow up with her primary care doctor for GI referral, colonoscopy and possible Crohn's workup. She was also instructed to call our office for an appointment and the phone number was given. A work note was also given. CODE STATUS: FULL CODE. JOB #: [id number] EXT JOB #:[id number] MTDD
== END 2017-04-04 11:20 | disposition home or self-care (01) | DRG 390 ==
LOC: ED 17:10 → MS 22:25 → ED 23:57
PROVIDERS: ADMIT Surgery; ATTEND Surgery
DX: K56.60 Unspecified intestinal obstruction (principal); E03.9 Hypothyroidism, unspecified; E87.6 Hypokalemia
CPT/HCPCS: 36415; 74000; 74177; 80048; 80053; 81001; 81003; 83605; 83690; 83735; 84100; 84703; 85025; 86141; 87086; 96361; 96374; 96375; 99284; 99285

== ENCOUNTER 2017-07-27 15:01 | Emergency (ER) | payer OTHER ==
[2017-07-27 15:11] VITALS: BP 120/73
--- NOTE | 2017-07-27 16:10 | ED Physician Documentation ---
History of Present Illness - Stated complaint Stated Complaint: COUGH - History obtained from History obtained from: Patient - History of Present Illness Timing: Other (Sick for about a week with nonproductive cough, headache at night especially when coughing, some runny nose. Her son is sick with a similar illness.) Review of Systems Constitutional: denies: Fever, Chills Ears: denies: Drainage/discharge Nose: reports: Rhinorrhea / runny nose Throat: denies: Sore throat Respiratory: reports: Cough. denies: Dyspnea PD PAST MEDICAL HISTORY - Past Medical History Past Medical History: Yes Cardiovascular: None Respiratory: None Neuro: None Endocrine/Autoimmune: HyPOthyroidism GI: None VOCATIONAL REHABILITATION CONSULTANT: None : None HEENT: None Psych: None Musculoskeletal: None Derm: Eczema - Past Surgical History Past Surgical History: Yes /VOCATIONAL REHABILITATION CONSULTANT: section, Tubal ligation - Present Medications Home Medications: Ambulatory Orders Medication Instructions Recorded Confirmed Levothyroxine Sodium [Synthroid] 50 mcg PO QDAC 04/03/17 07/27/17 Multivitamin W/Minerals [Theragran 1 each PO DAILY #90 tablet 04/04/17 07/27/17 M] Azithromycin [Zithromax] 250 mg PO DAILY #6 tablet 07/27/17 Calcium Carbonate/Vitamin D3 1 tab PO DAILY 07/27/17 07/27/17 [Calcium 600-Vit D3 500 Softgel] Guaifenesin/Pseudoephedrne HCl 1 each PO BID PRN #20 tab.er.12h 07/27/17 [Mucinex D ER 600-60 mg Tablet] guaiFENesin/CODEINE [Robitussin AC] 5 - 10 ml PO Q6H PRN #120 ml 07/27/17 - Allergies Allergies/Adverse Reactions: Allergies Allergy/AdvReac Type Severity Reaction Status Date / Time latex Allergy Itching Verified 07/27/17 15:44 bacitracin AdvReac Rash Verified 07/27/17 15:44 - Social History Does the pt smoke?: No Smoking Status: Never smoker Does the pt drink ETOH?: No Does the pt have substance abuse?: No - Immunizations Immunizations are current?: Yes Immunizations: TDAP >10years/unknown - POLST Patient has POLST: No PD ED PE NORMAL - Vitals Vital signs reviewed: Yes - General General: Alert and oriented X 3, No acute distress - HEENT HEENT: Other (Right otitis media, left TM normal, oropharynx normal.) - Neck Neck: Supple, no meningeal sign, No bony TTP - Cardiac Cardiac: RRR, No murmur - Respiratory Respiratory: No respiratory distress, Clear bilaterally - Abdomen Abdomen: Non tender - Neuro Neuro: Alert and oriented X 3, Normal speech - Psych Psych: Normal mood, Normal affect Results - Vitals Vitals: Vital Signs - 24 hr 07/27/17 15:08 Temperature 36.2 C L Heart Rate 118 H Respiratory 18 Rate Blood Pressure 120/73 O2 Saturation 99 Oxygen O2 Source Room air Departure - Departure Disposition: Home, Self Care Clinical Impression: Viral URI with cough Otitis media Qualifiers: Otitis media type: suppurative Chronicity: acute Laterality: right Recurrence: not specified as recurrent Spontaneous tympanic membrane rupture: without spontaneous rupture Qualified Code(s): H66.001 - Acute suppurative otitis media without spontaneous rupture of ear drum, right ear Instructions: ED Otitis Media Acute Adult Prescriptions: Azithromycin [Zithromax] 250 mg PO DAILY #6 tablet guaiFENesin/CODEINE [Robitussin AC] 5 - 10 ml PO Q6H PRN #120 ml PRN Reason: Cough Guaifenesin/Pseudoephedrne HCl [Mucinex D ER 600-60 mg Tablet] 1 each PO BID PRN #20 tab.er.12h PRN Reason: congestion Comments: Call your doctor to arrange a follow-up appointment, make the next available appointment. In the interim, return anytime if worse or if new symptoms develop. Forms: Activity restrictions Discharge Date/Time: 07/27/17 16:09
== END 2017-07-27 16:09 | disposition home or self-care (01) ==
LOC: ED 15:01
DX: H66.001 Acute suppurative otitis media without spontaneous rupture of ear drum, right ear (principal); J06.9 Acute upper respiratory infection, unspecified
CPT/HCPCS: 99281; 99283

== ENCOUNTER 2018-04-01 09:55 | Outpatient (CLI) | payer OTHER ==
--- NOTE | 2018-04-07 12:33 | Mammography Report ---
Procedure Date: 04/01/2018 Accession Number: [id number] / [id number] Procedure: ERIC - Screening Mammo Dig Bilat CPT Code: FULL RESULT: EXAM: Screening Mammo Dig Bilat DATE: 04/01/2018 10:11 AM CLINICAL HISTORY: Routine screening TECHNIQUE: Bilateral CC, exaggerated CC, and MLO views were obtained. COMPARISON: 03/31/2017, 03/11/2016, 01/16/2015, 01/03/2014, 08/01/2013, and 08/01/2012 FINDINGS: The breast tissue is heterogeneously dense no significant interval change. No suspicious masses, clustered microcalcifications, skin thickening, or regions of architectural distortion are identified. A few scattered benign-appearing calcifications are stable. IMPRESSION: Benign findings RECOMMENDATION: Routine annual screening unless otherwise clinically indicated. BIRADS CATEGORY 2: Benign findings STANDARD QUALIFYING STATEMENTS: 1. This examination was reviewed with the aid of Computer-Aided Detection (CAD). 2. A negative or benign imaging report should not delay biopsy if clinically suspicious findings are present. Consider surgical consultation if warrented. More than 5% of cancers are not identified by imaging. 3. Dense breasts may obscure an underlying neoplasm.
== END 2018-04-01 09:56 | disposition home or self-care (01) ==
LOC: DI 09:55
PROVIDERS: ATTEND Family Medicine
DX: Z12.31 Encounter for screening mammogram for malignant neoplasm of breast (principal)
CPT/HCPCS: 77067